=== PATIENT | male | born 1970 | race Caucasian/White ===

== ENCOUNTER 2016-10-19 14:11 | Emergency (ER) | payer OTHER ==
--- NOTE | ~2016-10-19 | CT4 ---
[facility] A Service of [facility] RADIOLOGY TEXT RESULTS PATIENT: TERRY FOSTER LOCATION: SED : 72 UNIT #: [id number] AGE: [address]: Nadeem Pritchard MD SEX: M ORDER DR: [id number] [place] [id number] MR#: [id number] #: [id number] NAME: TERRY FOSTER : 1970 SEX: M STUDY DATE/TIME: 10/19/2016 14:33 UNIT: SED ROOM: STUDY DESCRIPTION: CT Abd and Pelv Wo Cont Attending Physician: Nadeem Pritchard M.D. Ordering Physician: Nadeem Pritchard M.D. MEDICAL IMAGING REPORT This report is preliminary unless electronic signature is present. EXAM CT abdomen and pelvis without contrast HISTORY Left-sided flank pain started this morning with vomiting. FINDINGS Axial images performed through the abdomen and pelvis without contrast. Multiplanar reconstructed images reviewed at a workstation. This CT exam was performed with one or more of the following radiation dose reduction techniques: Automatic exposure control, adjustment of mA and/or kV according to patient size, and iterative reconstruction. ABDOMEN: Lung bases unremarkable. Liver, spleen, gallbladder, pancreas and adrenal glands unremarkable on this unenhanced study. There is mild enlargement of the left kidney with perinephric edema and mild hydronephrosis secondary to a 6 mm left UPJ stone and obstruction. There is also a small, nonobstructing stone upper-pole left kidney. Right kidney appears normal. Visualized GI tract appears normal. The retroperitoneum unremarkable. PELVIS: Bladder, prostate appear normal. Osseous structures and soft tissues appear normal. IMPRESSION 6 mm left UPJ stone with moderate hydronephrosis and evidence of acute obstruction. [facility] A Service of [facility] RADIOLOGY TEXT RESULTS PATIENT: TERRY FOSTER LOCATION: SED : 72 UNIT #: [id number] AGE: [address]: Nadeem Pritchard MD SEX: M ORDER DR: Dictated by... Lizzy Joseph M.D. THIS IS AN ELECTRONICALLY VERIFIED REPORT Lizzy Joseph M.D. at 10/20/2016 7:28 AM DEB/juliet TD: 10/19/2016 20:14 JOB #: [id number] MEDICAL IMAGING REPORT Page 1 of 1
[2016-10-19 14:10] LABS: URINE SOURCE CLEAN CATCH
[~2016-10-19 14:11] MED LIST: SYNTHROID PO; ZOLOFT
[2016-10-19 14:22] LABS: URINE APPEARANCE CLEAR; URINE BILIRUBIN NEG (NEG); URINE BLOOD 3+ (NEG); URINE COLOR YELLOW; URINE GLUCOSE NEG (NORM); URINE KETONE NEG (NEG); URINE LEUKOCYTE ESTERASE 1+ (NEG); URINE NITRATE NEG (NEG); URINE PROTEIN NEG (NEG); URINE SPECIFIC GRAVITY 1.025 (1.003-1.035); URINE UROBILINOGEN 0.2 MG/DL (NORM)
[2016-10-19 14:24] LABS: MICRO INDICATED? YES
[2016-10-19 14:44] LABS: CULTURE INDICATED? YES; URINE BACTERIA 2+ (NEG); URINE WBC 25-50 /[HPF] (0-5)
[2016-10-19 14:45] LABS: URINE MUCUS PRESENT; URINE SQUAMOUS EPITHELIAL CELL OCCAS /[HPF]; URINE YEAST PRESENT
== END 2016-10-19 17:29 | disposition home or self-care (01) ==
LOC: SED 14:11
PROVIDERS: Emergency Medicine
DX: N13.2 Hydronephrosis with renal and ureteral calculous obstruction (principal); N30.01 Acute cystitis with hematuria; E03.9 Hypothyroidism, unspecified
CPT/HCPCS: 36415; 74176; 81003; 87086; 99284